=== PATIENT | male | born 1995 | race Caucasian/White ===

== ENCOUNTER 2022-09-25 01:35 | Emergency (ER) | payer SELFPAY ==
[~2022-09-25] VITALS: Ht 170.2 cm; Wt 72.6 kg
[2022-09-25 01:35] VITALS: BP 145/90
--- NOTE | 2022-09-25 01:40 | NUR ---
[facility] TO CHAIR
--- NOTE | 2022-09-25 01:55 | NUR ---
Patient being evaluated by physician at bedside.
[2022-09-25 02:00] VITALS: BP 145/90
--- NOTE | 2022-09-25 02:01 | NUR ---
PATIENT BIB [facility]ICE DEPT. PATIENT EXAMINED BY DR. MAKI. PATIENT MEDICALLY CLEARED AND RELEASED IN CUSTODY IN STABLE CONDITION. ORIGINAL PRE-BOOK FORM GIVEN TO OFFICER [place], [id number].
== END 2022-09-25 02:01 ==
LOC: MED 01:35
DX: Z02.89 Encounter for other administrative examinations (principal); V49.88XA Car occupant (driver) (passenger) injured in other specified transport accidents, initial encounter; Y93.89 Activity, other specified; Y92.89 Other specified places as the place of occurrence of the external cause; Y99.8 Other external cause status
CPT/HCPCS: 99283